=== PATIENT | male | born 1960 | race Caucasian/White ===

== ENCOUNTER 2020-05-08 07:57 | Outpatient (CLI) | payer MEDICARE, SELFPAY ==
[2020-05-08 08:16] LABS: Basophils Absolute Auto 0.02 K/mm3 (0.00-0.10); Basophils Percent Auto 0.4 % (0.0-1.0); Eosinophils Absolute Auto 0.13 K/mm3 (0.02-0.50); Eosinophils Percent Auto 2.7 % (1.0-6.0); Hematocrit 33.5 % (40.0-54.0); Hemoglobin 10.9 g/dL (14.0-18.0); Immature Granulocyte Absolute 0.01 K/mm3 (0.00-0.00); Immature Granulocyte Percent A 0.2 % (0.0-0.0); Lymphocytes Absolute Auto 0.85 K/mm3 (1.10-4.50); Lymphocytes Percent Auto 17.4 % (18.0-42.0); Mean Corpuscular HGB Conc 32.5 g/dL (32.0-36.0); Mean Corpuscular Hemoglobin 30.4 pg (27.0-31.0); Mean Corpuscular Volume 93.3 fL (78.0-102.0); Mean Platelet Volume 11.3 fl (8.7-11.0); Monocytes Absolute Auto 0.57 K/mm3 (0.10-0.90); Monocytes Percent Auto 11.7 % (2.0-11.0); Neutrophils Absolute Auto 3.3 K/mm3 (1.7-7.2); Neutrophils Percent Auto 67.6 % (50.0-70.0); Platelet Count Result 176 K/mm3 (150-420); Red Blood Count 3.59 M/mm3 (4.70-6.10); Red Cell Distribution Width 12.1 % (11.6-14.4); White Blood Count 4.9 K/mm3 (4.8-10.8)
[2020-05-08 09:19] LABS: Creatinine Urine 100.39 mg/dL (40-278)
[2020-05-08 09:22] LABS: Hemoglobin A1C 6.3 % (<5.7)
[2020-05-08 09:27] LABS: Alanine Aminotransferase 27 U/L (16-63); Albumin Level 3.7 g/dL (3.4-5.0); Alkaline Phosphatase 68 U/L (46-116); Anion Gap 7 mmol/L (8-16); Aspartate Amino Transferase 17 U/L (15-37); Bilirubin,Total 0.4 mg/dL (0.00-1.00); Blood Urea Nitrogen 34 mg/dL (7-18); Carbon Dioxide 29 mmol/L (21-32); Chloride 107 mmol/L (98-108); Cholesterol 120 mg/dL (0-200); Estimated Glomerular Filt Rate 34; Glucose 156 mg/dL (70-99); HDL Direct 33 mg/dL (40-60); LDL Cholesterol Calculated 71 mg/dL (<130); Osmolality Calculated 306 mOsm/kg (285-295); Potassium 4.4 mmol/L (3.5-5.1); Sodium 143 mmol/L (136-145); Total Protein 6.5 g/dL (6.4-8.2); Triglycerides 82 mg/dL (0-150)
[2020-05-08 09:31] LABS: MALB Creatinine Ratio 398.4 mg/g (0-30); Microalbumin Urine Random > 400.0 mg/L
== END 2020-05-08 07:58 | disposition home or self-care (01) ==
LOC: CHSLAB 08:00
PROVIDERS: PCP Nurse Practitioner Family; Visit Provider Nurse Practitioner Family
DX: E78.5 Hyperlipidemia, unspecified (principal); E11.9 Type 2 diabetes mellitus without complications; I10 Essential (primary) hypertension
CPT/HCPCS: 36415; 80053; 80061; 82043; 83036; 85025

== ENCOUNTER 2020-06-05 07:48 | Outpatient (CLI) | payer MEDICARE, SELFPAY ==
[2020-06-05 08:01] LABS: Basophils Absolute Auto 0.05 K/mm3 (0.00-0.10); Basophils Percent Auto 0.8 % (0.0-1.0); Eosinophils Absolute Auto 0.19 K/mm3 (0.02-0.50); Eosinophils Percent Auto 2.9 % (1.0-6.0); Hematocrit 34.4 % (40.0-54.0); Hemoglobin 11.6 g/dL (14.0-18.0); Immature Granulocyte Absolute 0.04 K/mm3 (0.00-0.00); Immature Granulocyte Percent A 0.6 % (0.0-0.0); Immature Reticulocyte Fraction 10.4 % (2.0-16.52); Lymphocytes Absolute Auto 1.36 K/mm3 (1.10-4.50); Lymphocytes Percent Auto 20.9 % (18.0-42.0); Mean Corpuscular HGB Conc 33.7 g/dL (32.0-36.0); Mean Corpuscular Hemoglobin 30.9 pg (27.0-31.0); Mean Corpuscular Volume 91.5 fL (78.0-102.0); Monocytes Absolute Auto 0.69 K/mm3 (0.10-0.90); Monocytes Percent Auto 10.6 % (2.0-11.0); Neutrophils Absolute Auto 4.2 K/mm3 (1.7-7.2); Neutrophils Percent Auto 64.2 % (50.0-70.0); Platelet Count Result 205 K/mm3 (150-420); Red Blood Count 3.76 M/mm3 (4.70-6.10); Red Cell Distribution Width 12.1 % (11.6-14.4); Reticulocyte Hemoglobin Conten 36.1 pg (28.0-35.0); Reticulocyte Percent 2.08 % (0.50-1.50); Reticulocytes Absolute 0.08 M/mm3 (0.02-0.1); White Blood Count 6.5 K/mm3 (4.8-10.8)
[2020-06-05 09:30] LABS: Iron 81 ug/dL (65-175); Percent Iron Saturation 26 % (12-57); Vitamin B12 836 pg/mL (193-986)
== END 2020-06-05 07:49 | disposition home or self-care (01) ==
LOC: CHSLAB 07:50
PROVIDERS: PCP Nurse Practitioner Family; Visit Provider Nurse Practitioner Family
DX: D64.9 Anemia, unspecified (principal)
CPT/HCPCS: 36415; 82607; 83540; 83550; 85025; 85046

== ENCOUNTER 2020-06-16 09:41 | Outpatient (NON) | payer MEDICARE, SELFPAY ==
[2020-06-16 09:51] LABS: Occult Blood Negative (Negative)
== END 2020-06-16 09:42 ==
LOC: CHSLAB 09:43
PROVIDERS: Visit Provider Nurse Practitioner Family
DX: D64.9 Anemia, unspecified (principal)
CPT/HCPCS: 82272

== ENCOUNTER 2020-07-26 10:02 | Outpatient (CLI) | payer MEDICARE, SELFPAY ==
--- NOTE | ~2020-07-26 | US_ITS ---
EXAMINATION: US soft tissue LE RT DATE: 07/26/2020 11:07 INDICATION: Localized swelling, mass and lump at the right foot. TECHNIQUE: Multiple grayscale and Doppler ultrasound images of the region of concern at the dorsal as pect of the right foot were obtained. COMPARISON: None FINDINGS: There is a 3.7 x 1.0 x 1.2 cm loculated anechoic fluid collection in the subcutaneous tissues at the region of concern. No abnormal internal flow or surrounding hyperemia on color Doppler. No evident so lid soft tissue component. IMPRESSION: 1. 3.7 x 1.0 x 1.2 cm simple appearing anechoic likely ganglion cyst at the region of concern at the dorsal right midfoot. Differential would include less likely hematoma or abscess in the appropriate c linical settings. Reviewed, dictated and finalized at location A. UNICATIONS DIRECTOR IMPRESSION: 1. 3.7 x 1.0 x 1.2 cm simple appearing anechoic likely ganglion cyst at the reg ion of concern at the dorsal right midfoot. Differential would include less lik alfred hematoma or abscess in the appropriate clinical settings.
== END 2020-07-26 10:03 | disposition home or self-care (01) ==
PROVIDERS: PCP Nurse Practitioner Family; Visit Provider Nurse Practitioner Family
DX: R22.41 Localized swelling, mass and lump, right lower limb (principal)
CPT/HCPCS: 76882

== ENCOUNTER 2020-10-09 10:19 | Outpatient (CLI) | payer MEDICARE, SELFPAY ==
[2020-10-09 11:47] LABS: Anion Gap 9 mmol/L (8-16); Blood Urea Nitrogen 39 mg/dL (7-18); Calcium 8.8 mg/dL (8.5-10.1); Carbon Dioxide 29 mmol/L (21-32); Chloride 105 mmol/L (98-108); Estimated Glomerular Filt Rate 30; Glucose 132 mg/dL (70-99); Osmolality Calculated 307 mOsm/kg (285-295); Potassium 4.6 mmol/L (3.5-5.1); Sodium 143 mmol/L (136-145)
[2020-10-09 13:30] LABS: Creatinine Urine 124.77 mg/dL (40-278)
[2020-10-09 13:41] LABS: MALB Creatinine Ratio 320.5 mg/g (0-30); Microalbumin Urine Random > 400.0 mg/L
[2020-10-12 16:41] LABS: Hepatitis A Antibody IgM Nonreactive; Hepatitis B Core Antibody Nonreactive (Nonreactive); Hepatitis B Surface Antigen Nonreactive (Nonreactive); Hepatitis C Signal to Cutoff 0.01 ratio (<1.00); Hepatitis C Virus Antibody Nonreactive (Nonreactive)
[2020-10-12 20:58] LABS: Albumin 3.8 g/dL (3.8-4.8); Alpha 1 Globulin 0.2 g/dL (0.2-0.3); Alpha 2 Globulin 0.7 g/dL (0.5-0.9); Beta 1 Globulin 0.5 g/dL (0.4-0.6); Gamma Globulin 0.8 g/dL (0.8-1.7); Protein, Total 6.3 g/dL (6.1-8.1)
[2020-10-13 10:36] LABS: Complement C3 114 mg/dL (82-185)
[2020-10-14 20:44] LABS: ANCA Screen Negative (Negative)
[2020-10-15 00:10] LABS: Creatinine, Random Urine 113 mg/dL (20-320); Total Protein/Creatinine Ratio 2292 mg/g creat (22-128)
== END 2020-10-09 10:20 | disposition home or self-care (01) ==
PROVIDERS: PCP Nurse Practitioner Family
DX: N18.32 Chronic kidney disease, stage 3b (principal); R53.83 Other fatigue
CPT/HCPCS: 36415; 80048; 80074; 82043; 82570; 84155; 84156; 84165; 84166; 86021; 86038; 86160

== ENCOUNTER 2020-10-12 13:04 | Outpatient (CLI) | payer MEDICARE, SELFPAY ==
--- NOTE | ~2020-10-12 | US_ITS ---
EXAMINATION: US retroperitoneal comp, US retroperitoneal duplex ltd DATE: 10/12/2020 13:42 INDICATION: Chronic kidney disease and hypertension. TECHNIQUE: 1. Multiple grayscale and color Doppler images of the kidneys were obtained. 2. Multiple grayscale and pulsed Doppler images of the aorta and renal arteries were obtained. COMPARISON: None FINDINGS: Kidneys: The right kidney measures 10.8 x 5.7 x 5.5 cm. The left kidney measures 11.4 x 5.7 x 5.0 cm. The kidn eys demonstrate normal echogenicity. There is no hydronephrosis in either kidney. No stones identifi ed. The bladder is normal. Prostatomegaly. Renal arteries/vascular: The aorta peak systolic velocity is 121 cm/s. The right renal artery peak systolic velocity is 83 cm/ s in the proximal segment, 73 cm/s in the mid segment, and 63 cm/s in the distal segment. The left re nal artery peak systolic velocity is 84 cm/s in the proximal segment, 71 cm/s in the mid segment, and 70 cm/s in the distal segment. IMPRESSION: 1. Normal kidneys with no hydronephrosis. 2. No Doppler evidence of renal artery stenosis. 3. Prostatomegaly. Reviewed, dictated and finalized at location A. MAN IMPRESSION: 1. Normal kidneys with no hydronephrosis. 2. No Doppler evidence of renal artery stenosis. 3. Prostatomegaly.
== END 2020-10-12 13:05 | disposition home or self-care (01) ==
PROVIDERS: PCP Nurse Practitioner Family
DX: I12.9 Hypertensive chronic kidney disease with stage 1 through stage 4 chronic kidney disease, or unspecified chronic kidney disease (principal); N18.30 Chronic kidney disease, stage 3 unspecified
CPT/HCPCS: 76770; 93976

== ENCOUNTER 2020-10-30 09:05 | Outpatient (CLI) | payer MEDICARE, SELFPAY ==
[2020-10-30 10:09] LABS: Prostate Specific Antigen 1.2 ng/mL (< OR = 4.0)
== END 2020-10-30 09:06 | disposition home or self-care (01) ==
LOC: CHSLAB 09:07
PROVIDERS: PCP Nurse Practitioner Family; Visit Provider Internal Medicine
DX: N40.0 Benign prostatic hyperplasia without lower urinary tract symptoms (principal)
CPT/HCPCS: 36415; 84153

== ENCOUNTER 2021-01-03 13:22 | Outpatient (CLI) | payer MEDICARE, SELFPAY ==
--- NOTE | ~2021-01-03 | XR_ITS ---
XR lumbar spine 2-3V DATE: 01/03/2021 13:38 INDICATION: Low back pain radiating down left leg TECHNIQUE: AP, lateral, coned lateral lumbosacral views COMPARISON: None FINDINGS: No lumbar spine fracture or bone destruction. The lumbar pedicles are intact. There is moderately severe degenerative disc disease at L3-4. There is moderate degenerative disc disease and grade 1 anterolisthesis at L4-5. Mild degenerative disease at L2-3 and L5-S1. There is degenerative change at the apophyseal joints. Sacroiliac joints are normal. IMPRESSION: Grade 1 anterolisthesis at L4-5 due to degenerative change at the apophyseal joints Multilevel degenerative disc disease, most prominent at L3-4 and L4-5 Reviewed, dictated and finalized at location A. IMPRESSION: Grade 1 anterolisthesis at L4-5 due to degenerative change at the a pophyseal joints Multilevel degenerative disc disease, most prominent at L3-4 and L4-5
== END 2021-01-03 13:23 | disposition home or self-care (01) ==
LOC: CHSIMG 13:24
PROVIDERS: PCP Nurse Practitioner Family; Visit Provider Nurse Practitioner Family
DX: M54.5 Low back pain (principal)
CPT/HCPCS: 72100

== ENCOUNTER 2021-01-10 08:03 | Outpatient (RCR) | payer MEDICARE, SELFPAY ==
--- NOTE | 2021-01-10 08:37 | PTOPEVAL ---
Thank you for referring Dean Chaudhary to [facility].? The patient is scheduled to be seen for therapy? ____x/week for ___ weeks. Please review, sign, date and return this plan of care SHAMEKA. I agree with and certify that the following plan of care is medically necessary. Referring Physician Date Admitting Provider: Attending Provider: Martina Sheridan NP Referring Provider: MACIEJ Outpatient Evaluation Start: 01/10/21 07:00 Freq: Status: Active Protocol: Document 01/10/21 07:42 ACR (Rec: 01/10/21 08:35 ACR [id number]) Therapy Assessment Status Assessment Status Assessment Status Evaluation Evaluation Information Problem Diagnosis LBP/ L hip pain/sciatic Onset 01/04/21 Subjective Information A couple years ago he started Query Text:As Reported By Patient/ to have some back pain and in Family the past week his back has really flared up. The patient states he went to a chiropractor and there was no relief. He states the worst pain radiates down the leg and feels like the muscles are tight. Patient states that standing up for a period of time makes the leg pain worse. Patient states walking and navigating stairs increases pain as well. Patient reports he had a stroke about 5 years ago that effected his L side. He states he is an active person and is unable to participate in his hobbies ( fishing, hunting, camping). Prior Level of Function Activity Level (Last 3 Months) Occupation part-time solid waste truck driver Hand Dominance Right Activity of Daily Living Ability Independent Indoor/Home Mobility Independent Community Mobility Independent Stairs Ability Independent Functional Cognition (Planning, Shopping Independent , Taking Medications) Cooking Yes Cleaning Yes Laundry Yes Shopping Yes Driving Yes Pain Assessment Timing of Pain Assessment Timing of Pain Assessment Assessment Pain Scale Pain Scale Used Numeric (1 - 10) Self Report Pain Assessment Lower Back Reported Pain Level 5 Greatest Pain Intensity 10 Pain Sc
--- NOTE | 2021-02-03 16:53 | PCPTNOTE ---
Patient is a 60 year old male that participated in 2 therapy visits for low back pain, L hip pain, and sciatica. The patient received an MRI and is getting a 2nd opinion so he would like to be discharged at this time. Please refer to most recent treatment note for discharge status. Thank you, Kendra Harry DPT
== END 2021-01-14 09:15 | disposition home or self-care (01) ==
LOC: CHSPT 08:03
PROVIDERS: PCP Nurse Practitioner Family; Visit Provider Nurse Practitioner Family
DX: M54.32 Sciatica, left side (principal); M54.5 Low back pain
CPT/HCPCS: 97014; 97110; 97161; G0283

== ENCOUNTER 2021-04-08 14:41 | Outpatient (CLI) | payer MEDICARE, SELFPAY ==
[2021-04-08 15:18] LABS: Basophils Absolute Auto 0.04 K/mm3 (0.00-0.10); Basophils Percent Auto 0.6 % (0.0-1.0); Eosinophils Absolute Auto 0.17 K/mm3 (0.02-0.50); Eosinophils Percent Auto 2.7 % (1.0-6.0); Hematocrit 33.4 % (40.0-54.0); Hemoglobin 11.2 g/dL (14.0-18.0); Immature Granulocyte Absolute 0.02 K/mm3 (0.00-0.00); Immature Granulocyte Percent A 0.3 % (0.0-0.0); Lymphocytes Absolute Auto 1.19 K/mm3 (1.10-4.50); Lymphocytes Percent Auto 18.8 % (18.0-42.0); Mean Corpuscular HGB Conc 33.5 g/dL (32.0-36.0); Mean Corpuscular Hemoglobin 30.6 pg (27.0-31.0); Mean Corpuscular Volume 91.3 fL (78.0-102.0); Mean Platelet Volume 10.7 fl (8.7-11.0); Monocytes Absolute Auto 0.79 K/mm3 (0.10-0.90); Monocytes Percent Auto 12.5 % (2.0-11.0); Neutrophils Absolute Auto 4.1 K/mm3 (1.7-7.2); Neutrophils Percent Auto 65.1 % (50.0-70.0); Platelet Count Result 220 K/mm3 (150-420); Red Blood Count 3.66 M/mm3 (4.70-6.10); Red Cell Distribution Width 12.1 % (11.6-14.4); White Blood Count 6.3 K/mm3 (4.8-10.8)
[2021-04-08 15:35] LABS: Total Protein Urine Random 120.5 mg/dL (0.0-11.9); Ur Ttl Prot Creatinine Ratio 1.68 mg/mg (0-0.20)
[2021-04-08 15:58] LABS: Albumin Level 3.9 g/dL (3.4-5.0); Anion Gap 11 mmol/L (8-16); Blood Urea Nitrogen 41 mg/dL (7-18); Calcium 8.6 mg/dL (8.5-10.1); Carbon Dioxide 26 mmol/L (21-32); Chloride 105 mmol/L (98-108); Estimated Glomerular Filt Rate 27; Glucose 98 mg/dL (70-99); Osmolality Calculated 304 mOsm/kg (285-295); Phosphorus 3.9 mg/dL (2.6-4.7); Potassium 4.4 mmol/L (3.5-5.1); Sodium 142 mmol/L (136-145)
== END 2021-04-08 14:42 | disposition home or self-care (01) ==
LOC: CHSLAB 14:44
PROVIDERS: PCP Nurse Practitioner Family; Visit Provider Internal Medicine
DX: N18.32 Chronic kidney disease, stage 3b (principal)
CPT/HCPCS: 36415; 80069; 82570; 84156; 85025

== ENCOUNTER 2021-07-31 09:14 | Outpatient (CLI) | payer MEDICARE, SELFPAY ==
[2021-07-31 09:43] LABS: Hemoglobin 12.1 g/dL (14.0-18.0); Mean Corpuscular HGB Conc 33.6 g/dL (32.0-36.0); Mean Corpuscular Hemoglobin 31.3 pg (27.0-31.0); Mean Corpuscular Volume 93.3 fL (78.0-102.0); Mean Platelet Volume 10.8 fl (8.7-11.0); Platelet Count Result 207 K/mm3 (150-420); Red Blood Count 3.86 M/mm3 (4.70-6.10); Red Cell Distribution Width 12.1 % (11.6-14.4); White Blood Count 5.7 K/mm3 (4.8-10.8)
[2021-07-31 09:46] LABS: Add Urine Microscopic? YES; Appearance Urine Clear (Clear); Bilirubin Urine Negative (Negative); Blood Urine 1+ (Negative); Color Urine Light Yellow (Yellow); Glucose Urine UA Trace (Negative); Ketones Urine Negative (Negative); Leukocyte Esterase Ur Negative (Negative); Nitrate Urine Negative (Negative); Protein Urine 3+ (Negative); Specific Grav Ur 1.025 (1.010-1.020); Urobilinogen Urine 0.2 mg/dL (0.2-1.0)
[2021-07-31 09:49] LABS: Creatinine Urine 64.41 mg/dL (40-278); Total Protein Urine Random 225.3 mg/dL (0.0-11.9)
[2021-07-31 09:52] LABS: Bacteria Urine Trace /hpf; Squamous Epithelial Cell Urine None seen /hpf (Few); WBC Urine 0-3 /hpf (0-3)
[2021-07-31 09:57] LABS: Albumin Level 3.8 g/dL (3.4-5.0); Anion Gap 9 mmol/L (8-16); Blood Urea Nitrogen 32 mg/dL (7-18); Calcium 9.1 mg/dL (8.5-10.1); Carbon Dioxide 27 mmol/L (21-32); Chloride 104 mmol/L (98-108); Estimated Glomerular Filt Rate 29; Glucose 181 mg/dL (70-99); Osmolality Calculated 301 mOsm/kg (285-295); Phosphorus 4.4 mg/dL (2.6-4.7); Potassium 4.5 mmol/L (3.5-5.1); Sodium 140 mmol/L (136-145)
[2021-08-03 12:12] LABS: Hemoglobin A1C 6.5 % (<5.7)
== END 2021-07-31 09:15 | disposition home or self-care (01) ==
LOC: CHSLAB 09:20
PROVIDERS: PCP Nurse Practitioner Family; Visit Provider Nurse Practitioner Family
DX: N18.4 Chronic kidney disease, stage 4 (severe) (principal)
CPT/HCPCS: 36415; 80069; 81001; 82570; 83036; 84156; 85027

== ENCOUNTER 2022-03-18 13:39 | Emergency (ER) | payer MEDICARE, SELFPAY ==
--- NOTE | 2022-03-18 14:02 | PC.NURSE ---
see code sheet
--- NOTE | 2022-03-18 14:10 | PC.NURSE ---
MTS contacted, Yvonne, [phone]
--- NOTE | 2022-03-18 14:10 | PC.NURSE ---
stepped out of room to go make calls in her car.
--- NOTE | 2022-03-18 14:18 | PC.NURSE ---
RN spoke with Jhon Ramsey Professor Of Exercise Science who has released the body.
--- NOTE | 2022-03-18 15:30 | PC.NURSE ---
never came back in, will contact over phone for verbal release of body and what home she would like us to contact.
--- NOTE | 2022-03-18 15:36 | PC.NURSE ---
states throw away clothing, or send to retirement. patient is not wearing any jewlery and dentures were not in upon arrival to ed.
--- NOTE | 2022-03-18 15:37 | PC.NURSE ---
rn spoke with giving a verbal authorization to release body to [facility] in [place]. [facility] has been contacted and are on their way. MTS notified that patient will be leaving to go to their facility.
--- NOTE | 2022-03-18 16:14 | PC.NURSE ---
[facility] home has arrived to take patient.
--- NOTE | 2022-03-18 17:11 | ED.GENADULT ---
HPI - General Adult General Chief complaint: Cardiac Arrest/CPR Stated complaint: ambulance History of Present Illness HPI narrative: The patient is a 61-year-old male with history of chronic kidney disease, coronary artery disease status post coronary artery bypass grafting and cardiac catheterization, hypertension, hyperlipidemia, and diabetes. EMS was called to the residence after the witnessed the patient collapse with syncopal episode. An IO was placed in the left tibia and an eye gel was placed for airway protection. CPR had been initiated with the Christian device and the patient was mechanically bag. He received a total of 5 mg of epinephrine prior to arrival. The predominant rhythm was asystole. Onset of CPR was 13:59. By the time of his arrival to the emergency room, the patient had CPR ongoing for 35 minutes. No other history is available or obtainable as the family is not at the bedside that present. there was no return of spontaneous cardiac activity Related Data Home Medications Medication Instructions Recorded Confirmed aspirin 81 mg tablet,delayed 81 mg PO DAILY 01/03/21 03/10/22 release (Ragini Low Dose Aspirin) finasteride 5 mg tablet 5 mg PO DAILY 01/03/21 03/10/22 nitroglycerin 0.4 mg sublingual 0.4 mg sublingual Q5M PRN 01/03/21 03/10/22 tablet Allergies Allergy/AdvReac Type Severity Reaction Status Date / Time No Known Allergies Allergy Verified 03/10/22 07:49 Review of Systems Review of Systems: Unable to perform review of systems given the acuity of the situation with ongoing CPR [facility] Past Medical History Medical History (Updated 03/18/22 @ 17:24 by Tonio Liriano MD) HTN (hypertension) Hyperlipidemia Type 2 diabetes mellitus Social History Social History Smoking status: Former smoker Alcohol intake: never Substance use: never Substance use type: does not use Additional living arrangements comments: 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 No pulse obtainable without CPR. No blood pressure without CPR. GI: Other: Abdomen is soft and appears benign Skin: Other: no abrasions or lacerations, intraosseous line in place in the left leg Neuro: Other: no response to stimulation GCS 3 T Extrem: Other: cool extremities with delayed capillary refill Psych: Other: unable to assess given code status Course Course Emergency Course: The patient presents with ongoing CPR with a Christian device. This was continued throughout the course and then paused briefly for pulse checks throughout the code resuscitation which lasted an additional 25 minutes after arrival. During these 25 minutes, the patient received multiple boluses including a total of 4 mg of epinephrine, 6 shocks for recalcitrant ventricular fibrillation, 3 ampules of bicarbonate, 2 g of calcium chloride, 600 mg of amiodarone, and 200 mg of lidocaine. He was intubated with a 7.5 endotracheal tube after direct visualization of the cords. Initially the rhythm was ventricular fibrillation on arrival and he was defibrillated. He was defibrillated 6 times and received multiple anti arrhythmic agents with amiodarone and lidocaine to stabilize his rhythm. He had no return of spontaneous cardiac activity throughout. He did have episodes of pulseless electrical activity with agonal ventricular escape rhyt
== END 2022-03-18 17:41 | disposition expired ==
PROVIDERS: Emergency Provider Emergency Medicine; PCP Nurse Practitioner Family
DX: I46.9 Cardiac arrest, cause unspecified (principal); Z87.891 Personal history of nicotine dependence; I10 Essential (primary) hypertension; E78.5 Hyperlipidemia, unspecified; E11.9 Type 2 diabetes mellitus without complications
CPT/HCPCS: 31500; 92950; 96374; 96375; 99285; J0171; J0282; J2001; J7030